=== PATIENT | male | born 1980 | race Caucasian/White ===

== ENCOUNTER → 2024-12-28 09:47 | Outpatient (REF) | payer OTHER, SELFPAY | LOC: EMG 09:47 | PROVIDERS: ATTENDING PHYSICIAN Orthopaedic Surgery; FAMILY PHYSICIAN Nurse Practitioner | DX: R20.0 Anesthesia of skin (principal) | CPT/HCPCS: 95886; 95910 ==

== ENCOUNTER → 2025-01-06 09:50 | Outpatient (REF) | payer OTHER, SELFPAY | LOC: PAVMRI 09:50 | PROVIDERS: ATTENDING PHYSICIAN Orthopaedic Surgery; FAMILY PHYSICIAN Nurse Practitioner | DX: M54.12 Radiculopathy, cervical region (principal) | CPT/HCPCS: 70030; 72141 ==